=== PATIENT | male | born 1985 | race Caucasian/White ===

== ENCOUNTER 2024-05-24 13:46 | Emergency (ER) | payer OTHER, SELFPAY ==
[2024-05-24 13:59] VITALS: BP 162/116
--- NOTE | 2024-05-24 14:04 | ED.PDOC.TRB ---
ED Provider Triage
-
A medical screening examination has been initiated by a qualified medical provider. Based on the assessment performed at this time, it has been determined that an emergent medical condition may exist and the patient has been informed that further
medical evaluation and possible additional diagnostic testing may be needed.
HPI: This is a medical evaluation conducted in person to initiate diagnostic evaluation and provide initial therapeutics. Please see further documentation by the treating clinician.
GENERAL: Alert , in no apparent distress
EYE: No visual abnormalities.
NECK: Trachea midline
ENT: No visible abnormalities.
LUNGS: No acute respiratory distress
NEUROLOGICAL: Alert and oriented
SKIN: Skin intact. No visible changes.
MUSCULOSKELETAL: Moving extremities normally
PSYCH: Normal and appropriate interaction.
38-year-old male sent from urgent care for hypertension. He says he did wake up this morning felt a little bit of chest tightness which he was not sure what that meant. He went to urgent care because of a foot injury from work. He is not in any
distress and has no significant foot pain but on exam there they checked his blood pressure and it was elevated so they sent him here. He has previously had blood pressures in the 130s over 90s range but is never been treated.
This is likely just asymptomatic hypertension but will do a screening evaluation with labs, EKG, troponin.
[2024-05-24 14:37] LABS: % Basophils 0.5 % (0-2); % Eosinophils 2.9 % (0-6); % Immature Granulocytes 0.3 % (0-0.5); % Lymphocytes 38.8 % (20.5-51.1); % Monocytes 6.3 % (1.7-9.3); % Neutrophils 51.2 % (42.2-75.2); Absolute Eosinophils 0.2 10^3/uL (0-0.7); Absolute Lymphocytes 2.5 10^3/uL (1.2-3.4); Absolute Monocytes 0.4 10^3/uL (0.1-0.6); Absolute Neutrophils 3.3 10^3/uL (1.4-6.5); Hematocrit 42.9 % (39.0-52.0); Hemoglobin 15.6 g/dL (13.0-18.0); Mean Corp Hgb Conc. 36.4 g/dL (33.0-37.0); Mean Corpuscular Hgb 31.2 pg (27.0-31.0); Mean Corpuscular Volume 85.8 fL (80.0-94.0); Mean Platelet Volume 9.2 fL (7.4-10.4); Nucleated Red Blood Cells % 0 % (-); Platelet Count 166 10^3/uL (130-400); Red Cell Dist. Width 12.6 % (11.5-14.5); White Blood Cell Count 6.5 10^3/uL (4.8-10.8)
[2024-05-24 14:43] LABS: ALT (SGPT) 37 U/L (0-50); AST (SGOT) 32 U/L (17-59); Albumin 4.9 g/dl (3.5-5.0); Alkaline Phosphatase 75 U/L (38-126); Blood Urea Nitrogen 12 mg/dl (9-20); Calcium 10.1 mg/dl (8.4-10.2); Carbon Dioxide 26 mmol/L (22-30); Chloride 102 mmol/L (98-107); Glucose 90 mg/dl (70-99); Potassium 4.1 mmol/L (3.5-5.1); Sodium 139 mmol/L (135-145); Total Bilirubin 0.9 mg/dl (0.2-1.3); Total Protein 7.5 g/dl (6.3-8.2); eGFR > 60.00
[2024-05-24 14:53] LABS: Troponin I 0.012 ng/ml
--- NOTE | 2024-05-24 16:04 | ED.GENMED ---
History of Present Illness
General
Chief Complaint: Blood Pressure Problem
Source: patient
Exam Limitations: none
Time Seen by Provider: 05/24/24 15:28
Nursing documentation reviewed up to this point in time: agreed with
History of Present Illness
History of Present Illness:
Patient is a 38-year-old male past medical history of hypertension and anxiety presenting to the emergency department today with concerns of elevated blood pressure at urgent care. Initially went to the urgent care with concerns of a foot injury
from work at this assessed without emergent findings but otherwise were sent to the ER due to the elevated blood pressure level. Patient was additionally seen in triage cardiac workup ordered as well due to a brief episode of chest tightness early
this morning that was short-lived nonradiating no associated vomiting diaphoresis or shortness of breath.
Past History
Past History
ED Past Medical History: HTN and Other (Frequent ear infections with ruptured tympanic membrane)
ED Past Surgical History: Other (Tonsils and adenoids)
Social History
Tobacco: Smoker
Alcohol: None
Drug: None
Living: with family
Employment: Employed
Review of Systems
Review of Systems
Allergies reviewed?: Yes
All Other Systems: ROS reviewed and negative except as documented in HPI and ROS
Phy Exam
Physical Exam
Physical Exam:
GENERAL: Alert , in no apparent distress
EYE: pupils equal and reactive
NECK: Supple, no significant adenopathy.
ENT: o/p clr, mmm.
CARDIAC: Regular rate and rhythm .
LUNGS: Clear breath sounds bilaterally, no acute respiratory distress, no wheezes/rales/rhonchi
ABDOMEN: Soft, without focal tenderness, no r/g, no cvat
NEUROLOGICAL: Alert and oriented, no focal neuro deficits
SKIN: Warm and dry, skin intact.
MUSCULOSKELETAL: No edema, well perfused.
PSYCH: Normal and appropriate interaction.
Course
Orders/Labs/Results
Orders:
Orders
05/24/24 14:03
EKG [Electrocardiogram (*1)] Urgent
Reason for Study: Chest Pain
EKG- Treatment ONCE
05/24/24 14:10
CBC/With Diff [Complete Blood Count/With Diff] Urgent
Comprehensive Metabolic Panel Urgent
Troponin I Urgent
05/24/24 16:02
Lisinopril [Zestril] 10 mg PO NOW STA
Abnormal Lab Results
05/24/24
14:10
MCH 31.2 H pg
(27.0-31.0)
05/24/24 14:10
05/24/24 14:10
Vital Signs
Initial and Last Documented VS:
Initial Vital Signs
Temp Pulse Resp BP Pulse Ox
98.3 F 79 16 162/116 99
05/24/24 13:59 05/24/24 13:59 05/24/24 13:59 05/24/24 13:59 05/24/24 13:59
Last Documented Vital Signs
Temp Pulse Resp BP Pulse Ox
98.3 F 79 16 162/116 99
05/24/24 13:59 05/24/24 13:59 05/24/24 13:59 05/24/24 13:59 05/24/24 13:59
MDM/Problems Addressed
MDM/Problems Addressed:
Patient is a 38-year-old male presenting to the emergency department today with concerns of elevated blood pressure while at urgent care. He initially went there for a foot injury. Had very brief episode of chest discomfort this morning that he
initially did not think much of. He claims that he did have borderline high blood pressure 10 years ago with his primary care doctor but has not been following up with this. Denies any ongoing chest pain shortness of breath nausea vomiting
numbness weakness changes in urination or bowel movements. Here he had a normal cardiac workup and EKG normal labs renal function. Blood pressure remained in the 160s 110s. Patient with likely ongoing high blood pressure. Patient was started on
lisinopril and otherwise will follow-up with a primary care doctor in the next few weeks. Return precautions given.
*Critical Care Note
Total Time (30-74mins, 75-104mins- exclusive of procedures): Not Applicable
ED Attending Note
-
Portions of this chart may have been created with voice recognition software.� Occasional wrong word or��sound alike� substitutions may have occurred due to the inherent limitations of voice recognition software.
Discharge Plan
Departure
Patient Disposition: Home (Routine Discharge)
Date of Disposition: 05/24/24
Time of Disposition: 16:06
Patient with high blood pressure during this ER visit?: No
Condition: Good
Covid-19: Not Applicable
Discharge Problem:
High blood pressure
Instructions: High Blood Pressure (DC), BLOOD PRESSURE
Prescriptions:
New
lisinopril 10 mg tablet
10 mg PO DAILY 14 Days Qty: 14 0RF
Referrals:
[facility] [Provider Group] - Follow up in 5-7 days
Activity Restrictions/Additional Instructions:
You came to the emergency department today with concerns of an elevated blood pressure. You are started on medication. Please take this medication once daily and follow-up closely with the primary care doctor in 1 to 2 weeks for reassessment.
Return to the emergency department for any worsening, new or concerning symptoms.
Interventions
Interventions:
*Risk Screen - Suicide Last Done: 05/24/24 13:59
*General Assessment Last Done: 05/24/24 13:59
*Neglect/Abuse Screening Last Done: 05/24/24 13:59
ED- Cardiac Assessment Last Done: 05/24/24 15:57
ED- Neurological Assessment Last Done: 05/24/24 15:57
ED- Pulmonary Assessment Last Done: 05/24/24 15:57
Discharge Date and Time
Print Language: BURUNDIAN
[2024-05-24] MEDS: ZESTRIL 10 MG PO (16:11)
[2024-05-24 16:13] VITALS: BP 168/113
== END 2024-05-24 16:29 | disposition home or self-care (01) ==
LOC: EMR 13:46
PROVIDERS: Emergency Medicine; EMERGENCY PHYSICIAN Emergency Medicine
DX: I10 Essential (primary) hypertension (principal); F41.9 Anxiety disorder, unspecified; F17.200 Nicotine dependence, unspecified, uncomplicated
CPT/HCPCS: 99284; 80053; 84484; 85025; 93005

== ENCOUNTER 2024-10-07 21:42 | Emergency (ER) | payer OTHER, SELFPAY ==
[2024-10-07 21:54] VITALS: BP 153/105
[2024-10-07 23:59] VITALS: BMI 34.1
--- NOTE | 2024-10-08 01:03 | ED.GENMED ---
History of Present Illness
General
Chief Complaint: Ear Problem
Source: patient
Exam Limitations: none
Time Seen by Provider: 10/08/24 00:36
History of Present Illness
History of Present Illness:
This is a 39 year old male that comes in with c/o left ear pain that goes down into his jaw and the left sided of his face. States that it hurts to swallow. States that the ear pain started mildly yesterday but has gotten worse today. States that
at 3pm it got worse. State that the pain is making him feel SOB and little lightheaded. Denies any fever, chills, chest pain, abd pain, nausea, vomiting, diarrhea, headache, urinary burning.
Past History
Past History
ED Past Medical History: HTN, Hypercholesterolemia, Psychiatric (Anxiety) and Other (Frequent ear infections with ruptured tympanic membrane)
ED Past Surgical History: Tonsilectomy (and adenoids) and Other (Deviated septum)
Social History
Tobacco: Former smoker
Alcohol: Daily (Beer 1-2 )
Drug: None
Personal:
Living: with family
Employment: Employed
Review of Systems
Review of Systems
All Other Systems: ROS reviewed and negative except as documented in HPI and ROS
Constitutional: Reports no symptoms; Denies fever or chills
EENT: Reports other (Left ear pain)
Respiratory: Reports trouble breathing (due to pain); Denies cough
Cardiac: Reports no symptoms; Denies chest pain
ABD/GI: Reports no symptoms; Denies abdominal pain, nausea, vomiting or diarrhea
: Reports no symptoms; Denies dysuria, frequency or urgency
Musculoskeletal: Reports no symptoms
Skin: Reports no symptoms
Neurological: Reports other (Lightheaded); Denies headache
Psychiatric: Reports no symptoms
Phy Exam
General Physical Exam
General Presentation: no apparent distress
General age: appears stated age
General Skin: warm and dry
General Habitus: normal
General Mental: alert
General Hydration: appears well hydrated
ENT Exam
ENT Exam: TM's normal and other (Pharynx slightly red, negative for any exudate)
Eye Exam
Eye Exam: EOMI
Cardiovascular Exam
Cardiovascular Exam: regular rate/rhythm and no murmur
Pulmonary Exam
Pulmonary Exam: lungs clear, no respiratory distress, no rales, chest non tender, no crackles, no rhonchi, no wheezing and no cough
Musculoskeletal Exam
Musculoskeletal Exam: full ROM
Skin Exam
Skin Exam: normal color, warm/dry, no rash and no petechia
Psychiatric Exam
Psychiatric Exam: normal mood/affect
Course
Orders/Labs/Results
Orders:
Orders
10/08/24 00:51
Rapid Strep Group A Urgent
[place] Source: Throat/Pharynx
Specimen Description:
Date Specimen was Collected: 10/08/24
Time Specimen was Collected: 00:49
10/08/24 01:02
Acetaminophen [Tylenol] 1,000 mg PO NOW STA
Ketorolac [Toradol] 60 mg IM NOW STA
Rapid strep is negative.
Vital Signs
Initial and Last Documented VS:
Initial Vital Signs
Temp Pulse Resp BP Pulse Ox
98.1 F 82 20 153/105 100
10/07/24 21:54 10/07/24 21:54 10/07/24 21:54 10/07/24 21:54 10/07/24 21:54
Last Documented Vital Signs
Temp Pulse Resp BP Pulse Ox
98.1 F 111 18 147/94 97
10/07/24 21:54 10/08/24 01:49 10/08/24 01:49 10/08/24 01:49 10/08/24 01:49
MDM/Problems Addressed
Differential Diagnosis Includes:
Strep throat, Otitis media
MDM/Problems Addressed:
This is a 39 year old male that come in with c/o left ear pain and sore throat. States that the left sided of his face hurts. States that this started yesterday but got worse today.
Back into see patient. Explained that his Rapid strep is negative. This may be a viral illness. Patient to gargle with warm salter 3-4 times daily and use Tylenol and Ibuprofen for pain. Explained that he can take Tylenol 1000mg every 9am and then
Ibuprofen 600mg at 12 noon with food, Tylenol again at 3pm and Ibuprofen at 6pm. Follow up with the family doctor. Return with any concerns.
Chronic conditions affecting care:
NA
Acute Exacerbation and/or Progression of Chronic Illness:
Na
*Pulse Oximetry
Patient hypoxic: no
*EKG
Interpreted by ED Provider?: NA
Rate: EKG- N/A
*Ceramic Artist Interpretation
Rate: Ceramic Artist- N/A
*Critical Care Note
Total Time (30-74mins, 75-104mins- exclusive of procedures): Not Applicable
ED Attending Note
-
Portions of this chart may have been created with voice recognition software.� Occasional wrong word or��sound alike� substitutions may have occurred due to the inherent limitations of voice recognition software.
Discharge Plan
Departure
Patient Disposition: Home (Routine Discharge)
Date of Disposition: 10/08/24
Time of Disposition: 02:15
Patient with high blood pressure during this ER visit?: Yes
Condition: Good
Covid-19: Not Applicable
Discharge Problem:
Sore throat (viral), Ear pain, left
Instructions: Ear pain - ED discharge instructions, Sore throat in adults - ED discharge instructions, BLOOD PRESSURE
Prescriptions:
No Action
lisinopril 10 mg tablet
10 mg PO DAILY 14 Days Qty: 14 0RF
Patient Comments:
does not take anymore
Benicar
20 mg PO DAILY
Norvasc
5 mg PO DAILY
Tricor
96 mg PO DAILY
Referrals:
Brissa Ko, [Family Provider] - Follow up in 2-3 days
Activity Restrictions/Additional Instructions:
As discussed, at this time your rapid strep is negative and there is no sign of an ear infection. Please gargle with warm salt water 3-4 times daily. You may use Tylenol 1000mg every 6 hours and alternate with Ibuprofen 600mg every 6 hours with
food. So if you take Tylenol at 9am, the Ibuprofen can be taken at 12 noon, Tylenol again at 3pm and Ibuprofen at 6pm. Please increase your water intake to 8-8oz glasses daily. Follow up with the family doctor for recheck as needed. IF YOU HAVE ANY
OTHER CONCERNS PLEASE RETURN TO THE EMERGENCY ROOM
Interventions
Interventions:
*Risk Screen - Suicide Last Done: 10/07/24 21:54
*General Assessment Last Done: 10/07/24 21:54
*Neglect/Abuse Screening Last Done: 10/07/24 21:54
ED- Fall Risk Assessment Last Done: 10/07/24 21:54
*ED COVID-19 Vaccine History Last Done: 10/07/24 21:54
Discharge Date and Time
Print Language: ISRAELI
[2024-10-08] MEDS: TORADOL 60 MG IM (01:07)
[2024-10-08] MEDS: TYLENOL 1000 MG PO (01:09)
[2024-10-08 01:49] VITALS: BP 147/94
[2024-10-08 02:25] VITALS: BP 152/90
== END 2024-10-08 02:25 | disposition home or self-care (01) ==
LOC: EMR 21:42
PROVIDERS: EMERGENCY PHYSICIAN Student in an Organized Health Care Education/Training Program; FAMILY PHYSICIAN Family Medicine
DX: H92.02 Otalgia, left ear (principal); J02.9 Acute pharyngitis, unspecified; I10 Essential (primary) hypertension; Z87.891 Personal history of nicotine dependence
CPT/HCPCS: 99284; 96372; 87070; 87880